=== PATIENT | female | born 1955 | race Caucasian/White ===

== ENCOUNTER 2016-06-27 18:00 | Emergency (ER) | payer OTHER ==
[2016-06-27 18:35] VITALS: BP 132/72
--- NOTE | 2016-06-27 19:32 | RAD ---
INDICATION: Right knee injury. TECHNIQUE: 4 views of the right knee were obtained. FINDINGS: The bones are normal alignment. There is a joint effusion present. No fracture is seen. Joint spaces appear maintained. IMPRESSION: JOINT EFFUSION, NO FRACTURE IS SEEN.
--- NOTE | 2016-06-27 20:30 | UC ---
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 SINCE INJURY KNEE HAS BEEN PAINFUL ( AT LATERAL KNEE) TO BEND AND FEELS LIKE THERE HAS BEEN SWELLING. HISTORY OF LIGAMENT TEAT TO RIGHT KNEE FIVE YEARS AGO. - History of Current Complaint Chief Complaint: UCLowerExtremity Stated Complaint: RIGHT LEG PAIN Time Seen by Provider: 06/27/16 18:38 Hx Obtained From: Patient Onset/Duration: Gradual Onset, Lasting Days, Still Present Severity Initially: Mild Severity Currently: Mild Pain Intensity: 4 Pain Scale Used: 0-10 Numeric Aggravating Factor(s): Movement, Weight Bearing, Prolonged Standing, Stairs Alleviating Factor(s): Rest, Position Associated Signs And Symptoms: Positive: Swelling - Risk Factors Septic Arthritis Risk Factor: Negative - Allergies/Home Medications Allergies/Adverse Reactions: Allergies Allergy/AdvReac Type Severity Reaction Status Date / Time Ciprofloxacin [From Cipro] Allergy Hives Verified 06/27/16 18:23 Metronidazole [From Flagyl] Allergy Swelling Verified 06/27/16 18:23 Of Face,Lips,& Throat Penicillins Allergy Swelling Verified 06/27/16 18:23 Of Face,Lips,& Throat Sulfa Drugs Allergy GI Upset Verified 06/27/16 18:23 BLACK PEPPER Allergy Anaphylatic Uncoded 06/27/16 18:23 Shock Home Medications: Home Medications Ibuprofen TAB* [Advil TAB*] 400 mg PO Q6H PRN 06/27/16 [History Confirmed ] PMH/Surg Hx/FS Hx/Imm Hx Previously Healthy: Yes Endocrine History Of: Reports: Thyroid Disease - GRAVES DISEASE Denies: Diabetes Cardiovascular History Of: Reports: Hypertension Denies: Cardiac Disorders, Pacemaker/ICD Respiratory History Of: Denies: Asthma - Surgical History Surgical History: Yes Surgery Procedure, Year, and Place: gallbladder, tonsils - Family History Known Family History: Negative: Respiratory Disease, Blood Disorder - Social History Occupation: Employed Full-time Lives: With Family Alcohol Use: None Substance Use Type: None Smoking Status (MU): Never Smoked Tobacco Review of Systems Constitutional: Negative Skin: Negative Eyes: Negative ENT: Negative Respiratory: Negative Cardiovascular: Negative Gastrointestinal: Negative Genitourinary: Negative Motor: Negative Neurovascular: Negative Musculoskeletal: Arthralgia, Edema - RIGHT LATERAL KNEE, Myalgia Neurological: Negative Psychological: Negative All Other Systems Reviewed And Are Negative: Yes Physical Exam Triage Information Reviewed: Yes Appearance: Well-Appearing, Well-Nourished, Pain Distress - MILD, Obese Vital Signs: Initial Vital Signs Temp 98.7 F 06/27/16 18:25 Pulse 67 06/27/16 18:25 Resp 18 06/27/16 18:25 BP 132/72 06/27/16 18:25 Pulse Ox 97 06/27/16 18:25 Vital Signs Reviewed: Yes Eye Exam: Normal Eyes: Positive: Conjunctiva Clear ENT Exam: Normal ENT: Positive: Normal ENT inspection, Hearing grossly normal, Pharynx normal, TMs normal Dental Exam: Normal Neck exam: Normal Neck: Positive: Supple, Nontender, No Lymphadenopathy Respiratory Exam: Normal Respiratory: Positive: Chest non-tender, Lungs clear, Normal breath sounds, No respiratory distress Cardiovascular Exam: Normal Cardiovascular: Positive: RRR, No Murmur, Pulses Normal Abdominal Exam: Normal Abdomen Description: Positive: Nontender, No Organomegaly Musculoskeletal Exam: Normal Musculoskeletal: Positive: ROM Intact, Strength Limited @ - RIGHT KNEE, Edema @ - MILD RIGHT ANTERIOR KNEE Neurological Exam: Normal Psychological Exam: Normal Psychological: Positive: Normal Response To Family Skin Exam: Normal Knee Pain Course/Dx - Differential Dx/Diagnosis Differential Diagnosis/HQI/PQRI: Fracture (Closed), Internal Derangement Of Knee , Sprain, Strain Provider Diagnoses: RIGHT KNEE EFFUSIONJ, SPRAIN Discharge - Discharge Plan Condition: Stable Disposition: HOME Patient Education Materials: Knee Sprain (ED), Swollen Knee Joint (ED) Referrals: Char Berkowitz [Primary Care Provider] -
== END 2016-06-27 20:14 | disposition home or self-care (01) ==
LOC: UCCORT 18:00
DX: S83.92XA Sprain of unspecified site of left knee, initial encounter (principal); X58.XXXA Exposure to other specified factors, initial encounter; Y93.89 Activity, other specified; Y92.9 Unspecified place or not applicable; E66.9 Obesity, unspecified; Z88.1 Allergy status to other antibiotic agents; Z88.0 Allergy status to penicillin; Z88.2 Allergy status to sulfonamides
CPT/HCPCS: 99211; G0463

== ENCOUNTER 2016-10-09 06:04 | Day surgery (SDC) | payer OTHER ==
[~2016-10-09 06:04] MED LIST: Buffered Lidocaine 0.9% SYRIN* 5 ML/SYR SYRINGE INTRADERM ONE; Famotidine IV* 10 MG/ML 2 ML (20 mg) IV ONE
[2016-10-09] MEDS ORDERED: Clindamycin 900 MG IVPREMIX(* 900 MG/50 ML SDV IV ONE (06:08)
[2016-10-09] MEDS ORDERED: Buffered Lidocaine 0.9% SYRIN* 5 ML/SYR SYRINGE ONE (06:08)
[2016-10-09] MEDS ORDERED: Famotidine IV* 10 MG/ML 2 ML (20 mg) ONE (06:08)
[2016-10-09] MEDS ORDERED: methylPREDNISolone ACETATE 80* 80 MG/ML 1 ML VIAL ONE (06:47)
[2016-10-09] MEDS ORDERED: EPINEPHrine AMP 1 MG/ML ONE (06:48)
[2016-10-09] MEDS ORDERED: Bupivacaine 0.5% SDV PF* 30 ML VIAL ONE (06:48)
[2016-10-09] MEDS ORDERED: fentaNYL* 50 MCG/ML 2 ML VIAL (100 MCG VIAL) ONE (07:25)
[2016-10-09] MEDS ORDERED: Midazolam* 1 MG/ML 5 ML VIAL (5 MG) ONE (07:25)
[2016-10-09] MEDS ORDERED: DiMENhydriNATE IV* 50 MG/ML VIAL ONE (07:50)
[2016-10-09] MEDS ORDERED: Ketorolac INJ* 30 MG/ML 1 ML VIAL ONE (07:50)
[2016-10-09] MEDS ORDERED: Lidocaine 2% PF * 5 ML VIAL ONE (07:50)
[2016-10-09] MEDS ORDERED: Propofol* 10 MG/ML 20 ML BTL IV PUSH ONE (07:50)
[2016-10-09] MEDS ORDERED: Ondansetron INJ* 2 MG/ML VIAL ONE (07:50)
[2016-10-09] MEDS ORDERED: Dexamethasone IV* 4 MG/ML 1 ML (4 MG) ONE (07:50)
[2016-10-09] MEDS ORDERED: Acetaminophen TAB* 325 MG PO PRN (08:05)
[2016-10-09] MEDS ORDERED: DiMENhydriNATE IV* 50 MG/ML VIAL IV PUSH PRN (08:05)
[2016-10-09] MEDS ORDERED: HYDROmorphone* 1 MG/ML 1 ML SYR IV PRN (08:05)
[2016-10-09] MEDS ORDERED: oxyCODONE TAB* 5 MG TAB PO PRN (08:05)
[2016-10-09] MEDS ORDERED: HYDROmorphone* 1 MG/ML 1 ML SYR ONE (08:15)
[2016-10-09 09:44] VITALS: BP 142/85
--- NOTE | 2016-10-10 08:48 | OP ---
OPERATIVE REPORT: DATE OF OPERATION: 10/09/16 DATE OF : 53 SURGEON: Damari York MD BLOCKER HAND: TABBY Angeles Ms. did help throughout the procedure with preparation of the leg, holding instruments, man ipulation of the knee and wound closure. ANESTHESIOLOGIST: Dr. Perez. ANESTHESIA: General. PRE-OP DIAGNOSES: Right knee pain with medial meniscal tear and osteoarthritis, possible loose body . POST-OP DIAGNOSES: Right knee pain with medial meniscal tear and osteoarthritis, possible loose bod y. OPERATIVE PROCEDURE: Right knee arthroscopy with partial medial meniscectomy and patellofemoral cho ndroplasty. INDICATIONS: Ms. Vides is a 60-year-old female with 3 months of severe right knee pain after a twi sting injury to her knee. She has radiographs showing degenerative changes and an MRI showing a hor izontal-type tear of the posterior horn of the medial meniscus. Also, question of intraarticular lo ose body in the suprapatellar bursa. She failed conservative treatment with anti-inflammatories, ac tivity modification, and physical therapy. She elected to undergo arthroscopy due to continued pain and decreased quality of life. Informed consent was obtained from the patient. She understood the risks of the procedure include b ut were not limited to bleeding, infection, damage to nearby structures, continued pain, need for fu rther surgery, stroke, heart attack, blood clot, and . She wished to proceed. ESTIMATED BLOOD LOSS: Less than 25 cc. COMPLICATIONS: None. SPECIMEN: None. INTRAOPERATIVE FINDINGS: Intraoperatively, the patient was noted to have grade 3 and 4 Outerbridge cartilage changes of the patellofemoral and medial joint compartment. She had a posteromedial radia l-type tear along the root area of the medial meniscus. She did have a small, less than 1-cm loose body, which was attached to some synovium along the suprapatellar bursa region. This was easily rem eduardo. DESCRIPTION OF PROCEDURE: Ms. Vides was identified in the preanesthesia unit. Her right lower extr emity was marked as the correct operative side. Informed consent was signed and placed in the chart . The patient was taken to the operating room and placed under general anesthesia without any diffi culty. Right lower extremity was prepped and draped in the usual sterile fashion. Preop time-out w as made to correctly identify the patient's side and site. Appropriate perioperative antibiotics we re given within 1 hour of incision. A 0.5-cm anterolateral portal incision was made with 15 blade and carried down through the capsule. Trocar was introduced. As soon as the light and water sources were turned on, there was immediate visualization of the suprapatellar pouch. A tour was performed of the knee joint. There was a loos e body attached to synovium along the suprapatellar pouch. Medial gutter showed no obvious loose rosas dy or plica. Patellofemoral compartment had cartilage flapping and grade 3 and 4 Outerbridge cartil age changes with exposed subchondral bone. Medial compartment showed a tear along the posterior sundeep t of the medial meniscus. Grade 3 and 4 Outerbridge cartilage changes along the medial femoral cond yle. ACL appeared to be intact as well as PCL. The knee was placed in the figure-of-4 position and the lateral compartment showed no obvious meniscal tear or cartilage degeneration. Lateral gutters showed no obvious abnormality. Under direct visualization, a medial portal incision was made with a 15-blade. A probe was introduced and the second tour of the knee joint was perform ed. Radiofrequency ablation wand and shaver were used to remove some anterior synovitis to improve visualization. Shaver was placed in the suprapatellar pouch and the loose body was carefully removed . This was less than 1 cm in size. Next, a straight biter was placed. Straight biter and shaver we re used to perform partial medial meniscectomy until a smooth border was obtained along the posterio r horn of the medial meniscus along the white-red zone. The border was further smoothed with radiof requency ablation wand. Radiofrequency ablation wand was then placed in the patellofemoral compartm ent and any cartilage flaps were carefully smoothed. This was done in a conservative fashion. At this point, the knee was copiously irrigated with sterile saline. All the instruments were caref ully removed. The incisions were closed using interrupted nylon suture. Intraarticular injection o f 80 mg of Depo-Medrol and 6 cc 0.25% Marcaine was placed in the knee joint. Incisions were covered with Xeroform, 4x4's, and Webril. Alejo wrap and cold pack were placed over this. The patient's anesthesia was reversed without difficulty. She will be taken to the PACU in stable c ondition. Intended weightbearing will be weightbearing as tolerated. She will have aspirin for DVT prophylaxis. She will follow up with me in 2 weeks' time for suture removal. [id number]/[facility] #: [id number]
== END 2016-10-09 10:14 | disposition home or self-care (01) ==
LOC: OR 06:04
PROVIDERS: ATTEND Orthopaedic Surgery Adult Reconstructive Orthopaedic Surgery
DX: S83.241A Other tear of medial meniscus, current injury, right knee, initial encounter (principal); M17.11 Unilateral primary osteoarthritis, right knee; I10 Essential (primary) hypertension; E03.9 Hypothyroidism, unspecified; I34.8 Other nonrheumatic mitral valve disorders; X50.1XXA Overexertion from prolonged static or awkward postures, initial encounter; Y92.9 Unspecified place or not applicable
CPT/HCPCS: J0171; J1040; J1100; J1170; J1240; J1885; J2250; J2405; J2704; J3010

== ENCOUNTER 2016-11-06 17:31 | Emergency (ER) | payer OTHER ==
--- NOTE | 2016-11-06 17:50 | UC ---
Knee Pain HPI - HPI Summary HPI Summary: 60 YEAR OLD FEMALE PRESENTS WITH COMPLAINS OF POSTERIOR KNEE PAIN AFTER KNEE ARTHROSCOPE. - History of Current Complaint Stated Complaint: RIGHT KNEE (POPLITEAL) PAIN - Allergies/Home Medications Allergies/Adverse Reactions: Allergies Allergy/AdvReac Type Severity Reaction Status Date / Time Adhesive Tape Allergy Blisters Verified 11/06/16 17:52 Cinnamon Allergy WHEEZING, Verified 11/06/16 17:52 AND SEVER COUGHING Ciprofloxacin [From Cipro] Allergy Hives Verified 11/06/16 17:52 Metronidazole [From Flagyl] Allergy Swelling Verified 11/06/16 17:52 Of Face,Lips,& Throat Penicillins Allergy Swelling Verified 11/06/16 17:52 Of Face,Lips,& Throat Sulfa Drugs Allergy GI Upset Verified 11/06/16 17:52 BLACK PEPPER Allergy Anaphylatic Uncoded 11/06/16 17:52 Shock PMH/Surg Hx/FS Hx/Imm Hx - Surgical History Surgical History: Yes Surgery Procedure, Year, and Place: [facility]OMY[facility]. [id number]. COLONOSCOPY - Family History Known Family History: Negative: Respiratory Disease, Blood Disorder - Social History Alcohol Use: None Substance Use Type: None Smoking Status (MU): Never Smoked Tobacco Review of Systems Constitutional: Negative Skin: Negative Eyes: Negative ENT: Negative Respiratory: Negative Cardiovascular: Negative Gastrointestinal: Negative Genitourinary: Negative Motor: Negative Neurovascular: Negative Musculoskeletal: Other: - RIGHT POSTERIOR KNEE PAIN Neurological: Negative Psychological: Negative All Other Systems Reviewed And Are Negative: Yes Physical Exam Triage Information Reviewed: Yes Eye Exam: Normal ENT Exam: Normal Dental Exam: Normal Neck exam: Normal Neck: Positive: 1 Respiratory Exam: Normal Cardiovascular Exam: Normal Abdominal Exam: Normal Musculoskeletal: Positive: Other: - RIGHT POSTERIOR KNEE PAIN Neurological Exam: Normal Psychological Exam: Normal Skin Exam: Normal Knee Pain Course/Dx - Differential Dx/Diagnosis Provider Diagnoses: RIGHT POSTERIOR KNEE PAIN Discharge - Discharge Plan Condition: Stable Disposition: AGAINST MEDICAL ADVICE Patient Education Materials: Knee Pain (ED) Referrals: Char Berkowitz [Primary Care Provider] -
[2016-11-06 17:52] VITALS: BP 144/75
== END 2016-11-06 18:05 | disposition left against medical advice (07) ==
LOC: UCCORT 17:31
DX: M25.561 Pain in right knee (principal); Z90.49 Acquired absence of other specified parts of digestive tract; Z88.1 Allergy status to other antibiotic agents; Z88.2 Allergy status to sulfonamides; Z91.048 Other nonmedicinal substance allergy status
CPT/HCPCS: 99212; G0463